=== PATIENT | male | born 2000 | race Caucasian/White ===

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

== ENCOUNTER 2019-09-10 18:11 | Emergency (ER) | payer BC, MEDICAID ==
--- OUTSIDE RECORDS SUMMARY | 2019-09-10 18:58 | XMS REPORT ---
:2000 Author Organization [facility] Care Team Providers Name Role Phone Dustin Elam Primary Care Physician Unavailable Allergies, Adverse Reactions, Alerts Allergy Code CodeSystem Reaction Severity Criticality Status Start Substance Date Moderate Medications Medication Medication Medication Start Stop Route Dose Status Fill Code CodeSystem Date Date Instructions Adderall XR 932317 RxNorm 2018- oral 15 mg 1 completed Take 1 capsule 02-27 capsule,e every morning xtended for 30 day(s) release 24hr every morning Seroquel 639605 RxNorm 2018-09 2020- oral 200 mg 1 active Take 1 tablet by 020 tablet at mouth at bedtime bedtime for 30 day(s) Abilify 4637444 RxNorm 2020- IM 300 mg active Inject 300 mg Maintena 04-01 300 intramuscularly suspensio single dose for n,extende 30 day(s) d rel recon single dose Adderall XR 597698 RxNorm 2018-09- oral 15 mg 1 active Take 1 capsule 0- capsule,e every morning xtended for 30 day(s) release 24hr every morning metformin 125716 RxNorm 2018-09 2020- oral 500 mg 1 active Take 1 tablet by 020 tablet mouth at bedtime extended for 30 day(s) release 24 hr at bedtime metformin 108252 RxNorm 2019- oral 500 mg 1 completed Take 1 tablet by 05-28 tablet mouth at bedtime extended for 30 day(s) release 24 hr at bedtime Invega 034634 RxNorm 2019- oral 1.5 mg 1 active Take 1 tablet by 08-07 tablet mouth at bedtime extended for 30 day(s) release 24hr at bedtime lisinopril 599867 RxNorm 2019- oral 5 mg 1 completed Take 1 tablet by - tablet mouth once a day once a for 30 day(s) day Seroquel 887116 RxNorm 2018-0 2019- oral 200 mg 1 completed Take 1 tablet by 5-15 09-12 tablet at mouth at bedtime bedtime for 30 day(s) Adderall XR 533528 RxNorm 2019- oral 15 mg 1 completed Take 1 capsule 07-17 capsule,e by mouth every xtended morning for 30 release day(s) 24hr every morning Adderall XR 761040 RxNorm 2018- 2019- oral 15 mg 1 completed Take 1 capsule 9-11 10-11 capsule,e every morning xtended for 30 day(s) release 24hr every morning Adderall XR 853595 RxNorm 2018- 2019- oral 15 mg 1 completed Take 1 capsule 4-03 05-03 capsule,e by mouth every xtended morning for 30 release day(s) 24hr every morning Adderall XR 515115 RxNorm 2018- 2019- oral 15 mg 1 completed Take 1 capsule 7-17 08-16 capsule,e every morning xtended for 30 day(s) release 24hr every morning lisinopril 719648 RxNorm 2018-09 2020- oral 5 mg 1 active Take 1 tablet by 0-23 02-20 tablet mouth once a day once a for 30 day(s) day Seroquel 226551 RxNorm 2019- oral 200 mg 1 completed Take 1 tablet by 05-15 tablet at mouth at bedtime bedtime for 30 day(s) Problems Problem Code CodeSystem Alternate Alternate Start End Status Narrative Name Code CodeSystem Date Date Other [id number] SNOMED-CT 2018-11 Active bipolar -22 disorder Relevant diagnostic tests/laboratory data Narrative No Information Procedures Procedure Code CodeSystem Target Date of Status Service Device Device Device Name Site Procedure Delivery Code Name UID Location Psychotherap [id number] SNOMED-CT () 2018-12-17 complete Mental y, 30 87 d Health- minutes with [place] patient when [address] with an [facility] and [facility], service [id number] (List [id number] separately in addition to the code for primary procedure) Psychotherap [id number] SNOMED-CT () 2019-05-26 complete Mental y, 45 04 d Health- minutes with [place] patient [address], [place], [place], [id number] Psychotherap [id number] SNOMED-CT () 2019-06-08 complete Mental y, 45 04 d Health- minutes with [place] patient [address], [id number] [id number] Psychotherap [id number] SNOMED-CT () 2019-03-25 complete Mental y, 45 04 d Health- minutes with [place] patient [address], [id number] [id number] Psychotherap [id number] SNOMED-CT () 2018-12-22 complete Mental y, 45 04 d Health- minutes with [place] patient [address], [id number] [id number] Psychotherap [id number] SNOMED-CT () 2019-07-21 complete Mental y, 45 04 d Health- minutes with [place] patient [address], [id number] Comprehensiv [id number] SNOMED-CT () 2019-04-02 complete Mental e medication 0 d Health- services, [place] per [address], [id number] [id number] Office or [id number] SNOMED-CT () 2019-04-01 complete Mental other 7 d Health- outpatient [place] visit for [address], [facility] [id number] patient, [phone] which requires at least 2 of these 3 miranda components: An expanded problem focused history; An expanded problem focused examination; Medical decision making of low Office or [id number] SNOMED-CT () 2019-02-18 complete Mental other 7 d Health- outpatient [place] visit for [address], [facility] [id number] patient, [phone] which requires at least 2 of these 3 miranda components: An expanded problem focused history; An expanded problem focused examination; Medical decision making of low Office or [id number] SNOMED-CT () 2019-07-08 complete Mental other 6 d Health- outpatient [place] visit for [address], [facility] [id number] patient, [phone] which requires at least 2 of these 3 miranda components: A problem focused history; A problem focused examination; Straightforw haylee medical decision making. Counselin SNOMED-CT () 2019-06-22 complete Mental d [address], [id number] [id number] SNOMED-CT () 2019-02-12 complete Mental d [address], [id number] [id number] SNOMED-CT () 2019-03-11 complete Mental d [address], [id number] [id number] SNOMED-CT () 2019-03-12 [facility] Mental d [address], [id number] SNOMED-CT () 2019-04-22 [facility] Mental d [address], [id number] [phone] SNOMED-CT () 2019-05-05 [facility] Mental d [address], [id number] SNOMED-CT () 2019-05-12 [facility] Mental d [address], [id number] [id number] Encounters/Encounter Diagnoses Encounter Name Encounter Diagnosis Diagnosis Diagnosis Date of Service Code Code Name CodeSystem Diagnosis Delivery Location [facility] [id number] Other SNOMED-CT 2019-07-21 Behavioral Individual 30 [facility] [address] [place] [address], [id number] Vital Signs No Information Social History Element Description Description Start End Code CodeSystem AdditionalInfo Date Date SexAssignedAtBirth Male 1999-0 M AdministrativeGender 7-14 Hospital Discharge Instructions Reason For Referral Medical Equipment FDA Assessments
--- NOTE | 2019-09-10 19:17 | ED ---
HPI Febrile Illness - HPI Summary HPI Summary: This patient is a 19 year old male presenting to [facility] with a chief complaint of illness. He reports right-sided abdominal pain, cough, and headache. He describes his abdominal pain as an intermittent twisting pain. He states he did not get the flu-shot this year and his friends sister was sick yesterday. Fever in the ED is 101.1 F. Patient has a Hx of DM. He rates his abdominal pain 8/10 in severity. Medications reviewed, allergies noted. - History of Current Complaint Chief Complaint: EDFever Time Seen by Provider: 09/10/19 19:10 Hx Obtained From: Patient Onset/Duration: Started Hours Ago Pain Intensity: 8 Pain Scale Used: 0-10 Numeric - Allergy/Home Medications Allergies/Adverse Reactions: Allergies Allergy/AdvReac Type Severity Reaction Status Date / Time No Known Allergies Allergy Verified 07/20/18 02:39 PMH/Surg Hx/FS Hx/Imm Hx Endocrine/Hematology History: Reports: Hx Diabetes - Type 2 Respiratory History: Denies: Hx Asthma Psychiatric History: Reports: Hx Attention Deficit Hyperactivity Disorder Infectious Disease History: No Infectious Disease History: Denies: Traveled Outside the [place] in Last 30 Days - Family History Known Family History: Negative: Cardiac Disease, Diabetes - Social History Alcohol Use: Occasionally Hx Substance Use: No Substance Use Type: Reports: None Hx Tobacco Use: No Smoking Status (MU): Never Smoked Tobacco Review of Systems Positive: Fever Positive: Cough Positive: Abdominal Pain Positive: Headache All Other Systems Reviewed And Are Negative: Yes Physical Exam - Summary Physical Exam Summary: Constitutional: Well-developed, Well-nourished, Alert. (-) Distressed Skin: Warm, Dry HENT: Normocephalic; Atraumatic. Copious nasal discharge. Eyes: Conjunctiva normal Neck: Musculoskeletal ROM normal neck. (-) JVD, (-) Stridor, (-) Tracheal deviation Cardio: Rhythm regular, rate tachyacardic, Heart sounds normal; Intact distal pulses; Radial pulses are 2+ and symmetric. (-) Murmur Pulmonary/Chest wall: Effort normal. (-) Respiratory distress, (-) Wheezes, (-) Rales Abd: Soft, (-) tenderness, (-) Distension, (-) Guarding, (-) Rebound Musculoskeletal: (-) Edema Lymph: (-) Cervical adenopathy Neuro: Alert, Oriented x3 Psych: Mood and affect Normal Triage Information Reviewed: Yes Vital Signs On Initial Exam: Initial Vitals Temp Pulse Resp BP Pulse Ox 101.1 F 117 18 148/99 98 09/10/19 18:22 09/10/19 18:22 09/10/19 18:22 09/10/19 18:22 09/10/19 18:22 Vital Signs Reviewed: Yes Procedures - Sedation Patient Received Moderate/Deep Sedation with Procedure: No Diagnostics - Vital Signs Vital Signs Temp Pulse Resp BP Pulse Ox 09/10/19 18:22 101.1 F 117 18 148/99 98 - Laboratory Result Diagrams: 09/10/19 20:51 09/10/19 20:51 Lab Statement: Any lab studies that have been ordered have been reviewed, and results considered in the medical decision making process. - EKG 2351 Cardiac Rate: Tachycardia - 121 BPM EKG Rhythm: Sinus Tachycardia Summary of EKG Findings: T-wave inversion in III. No prior EKG. ED Physician has reviewed and interpreted this report. Re-Evaluation - Re-Evaluation First Eval Re-Evaluation Time: 20:43 Comment: Still has a fever after Motrin and Tyelnol. Will do labs and give fluids IV. Second Eval Re-Evaluation Time: 21:15 Comment: Abdominal pain has resided, however he has had multiple episodes of diarrhea here. Third Eval Re-Evaluation Time: 23:36 Comment: Still tachycardic. Was advised he should be admitted and he stated he would leave AMA. He states he will stay for an EKG. He understands the risks of leaving AMA including . Course/Dx - Course Course Of Treatment: Patient is here with "twisting" of his stomach accompanied with fever and diarrhea. Patient had no abdominal tenderness on exam. Patient did not have any pain while in the ED. Patient was noted be tachycardic and febrile upon arrival. Patient is initially given by mouth Motrin and Tylenol with by mouth fluids. Patient's temperature and heart rate do not improve. Labs performed which showed no leukocytosis and a normal lactate. Patient was negative. Patient was given a total of 3 L of IV fluids with no improvement in his heart rate. Patient had multiple episodes of diarrhea while in the ED. Patient was told he would benefit from admission to the hospital but left AGAINST MEDICAL ADVICE. Patient was aware that leaving AGAINST MEDICAL ADVICE could lead to his and worsening morbidity/mortality. Patient accepted this risk and signed paperwork for AMA. - Diagnoses Provider Diagnoses: Fever, Tachycardia, Diarrhea, Dehydration Discharge ED - Sign-Out/Discharge Documenting (check all that apply): Patient Departure - Discharge - Discharge Plan Condition: Stable Disposition: AGAINST MEDICAL ADVICE Patient Education Materials: Dehydration (ED), Fever in Adults (ED), Tachycardia (ED) Referrals: Care [facility] [Outside] Additional Instructions: Please come back if you have second thoughts of being admitted. Return with nausea, vomiting, difficulty breathing, chest pain. - Billing Disposition and Condition Condition: STABLE Disposition: Against Medical Advice - Attestation Statements Document Initiated by Emely: Yes Documenting Scribe: Lasha Boyle Provider For Whom Emely is Documenting (Include Credential): Peter Gtz MD Scribe Attestation: Lasha Crane, scribed for Peter Gtz MD on 09/11/19 at 0051. Scribe Documentation Reviewed: Yes Provider Attestation: The documentation as recorded by the Lasha mercedes accurately reflects the service I personally performed and the decisions made by , Peter Gtz MD Status of Scribe Document: Viewed
[2019-09-10] MEDS ORDERED: Acetaminophen TAB* 325 MG PO ONE (19:18)
[2019-09-10 20:07] LABS: Influenza A Molecular NEGATIVE (Negative); Influenza B Molecular NEGATIVE (Negative)
[2019-09-10] MEDS ORDERED: Ibuprofen TAB* 600 MG PO ONE (20:09)
[2019-09-10] MEDS ORDERED: NS 0.9% 1000 ML** 2,000 ML IV ONE (20:43)
[2019-09-10 21:06] LABS: ABS Eosinophils 0.1 10^3/ul (0-0.6); ABS Lymphocytes 0.5 10^3/ul (1.0-4.8); ABS Monocytes 0.7 10^3/ul (0-0.8); ABS Neutrophils 8.3 10^3/ul (1.5-7.7); ABS Nucleated RBC 0.1 10^3/ul; Eosinophil % 0.8 %; Hematocrit 49 % (42-52); Hemoglobin 16.7 g/dL (14.0-18.0); Lymphocyte % 4.9 %; Mean Corpuscular HGB Conc 34 g/dL (31-36); Mean Corpuscular Hemoglobin 29 pg (27-31); Mean Corpuscular Volume 86 fL (80-94); Mean Platelet Volume 9.4 fL (7.4-10.4); Nucleated Red Blood Cells % 0.6; Platelet Count 228 10^3/uL (150-450); Red Blood Count 5.68 10^6 /uL (4.18-5.48); Red Cell Distribution Width 14 % (10-15); White Blood Count 9.5 10^3/uL (3.5-10.8)
[2019-09-10 21:21] LABS: Albumin 4.3 g/dL (3.2-5.2); BUN/Creatinine Ratio 20.2 (8-20); Calcium 9.5 mg/dL (8.6-10.3); EGFR Non-African American 116.5 (>60); Globulin 4.3 g/dL (2-4); Potassium 3.8 mmol/L (3.5-5.0); Total Bilirubin 0.4 mg/dL (0.2-1.0); Total Protein 8.6 g/dL (6.4-8.9)
[2019-09-10] MEDS ORDERED: NS 0.9% 1000 ML** 1,000 ML IV ONE (22:06)
[2019-09-11 00:20] VITALS: BP 141/99
== END 2019-09-11 00:10 | disposition left against medical advice (07) ==
LOC: ED 18:11
DX: R50.9 Fever, unspecified (principal); R00.0 Tachycardia, unspecified; R19.7 Diarrhea, unspecified; E86.0 Dehydration; E11.9 Type 2 diabetes mellitus without complications; F90.9 Attention-deficit hyperactivity disorder, unspecified type
CPT/HCPCS: 36415; 80053; 83605; 85025; 93005; 96360; 96361; 99284; A9270-GY

== ENCOUNTER 2019-09-16 00:42 | Emergency (ER) | payer BC, MEDICAID ==
--- NOTE | 2019-09-16 01:09 | ED ---
Substance Abuse/Use - HPI Summary HPI Summary: Pt is a 19 y/o M presenting to the ED brought in by EMS and [employer] on a 22.09. LEVEL 5 CAVEAT: Pts full hx and physical is limited d/t intoxication. EMS thinks he may have fallen, and reports he is highly emotional. Pt states he drank 1.5 bottles of vodka. Denies drug use. Hx NIDDM. - History Of Current Complaint Chief Complaint: EDSubstanceAbuse Stated Complaint: ETOH PER EMS Time Seen by Provider: 09/16/19 00:49 Hx Obtained From: Patient Onset/Duration of Drug/ETOH Abuse: Hours Overdose Characteristics: Oral Timing Of Abuse: Binge Use Severity Initially: Moderate Severity Currently: Severe Character: Lethargic Aggravating Factor(s): Nothing Alleviating Factor(s): Nothing Associated Signs And Symptoms: Vomiting - Allergies/Home Medications Allergies/Adverse Reactions: Allergies Allergy/AdvReac Type Severity Reaction Status Date / Time No Known Allergies Allergy Verified 07/20/18 02:39 PMH/Surg Hx/FS Hx/Imm Hx Previously Healthy: Yes Endocrine/Hematology History: Reports: Hx Diabetes - Type 2 Respiratory History: Denies: Hx Asthma Psychiatric History: Reports: Hx Attention Deficit Hyperactivity Disorder Infectious Disease History: Unable to Obtain/Confirm Infectious Disease History: Denies: Traveled Outside the [place] in Last 30 Days - Family History Known Family History: Negative: Cardiac Disease, Diabetes - Social History Alcohol Use: ETOH intoxication Hx Substance Use: No Substance Use Type: Reports: None Substance Use Comment - Amount & Last Used: unknown Hx Tobacco Use: No Smoking Status (MU): Unknown if Ever Smoked Review of Systems - ROS Summary Review of Systems Summary: Home Medications Medication Instructions Recorded Confirmed Type Adderall TAB* 15 mg pe PO DAILY 12/15/18 09/10/19 History Lisinopril TAB* [Prinivil TAB 5 5 mg PO DAILY 12/15/18 09/10/19 History MG*] Metformin HCl [Metformin HCl ER] 500 mg PO DAILY 12/15/18 09/10/19 History Quetiapine Fumarate 200 mg PO DAILY 12/15/18 09/10/19 History Positive: Vomiting All Other Systems Reviewed And Are Negative: No Physical Exam - Summary Physical Exam Summary: General: Obese male. Appears to have vomited on himself. Lethargic, arousable. HEENT: Normocephalic, Atraumatic. Eyes: Conjuctiva normal, PERRL. Oropharynx: Clear, mucous membranes moist, (-) exudates. Neck: Soft, FROM, (-) lymphadenopathy, (-) thyromegaly, (-) JVD. Cardiovascular: Normal sinus rhythm, (-) murmur. Lungs: Clear to auscultation bilaterally (-) wheezes, (-) rales, (-) rhonchi. Abdomen: Soft, non-tender, non-distended, (-) organomegaly, normal bowel sounds. Back: (-) CVA tenderness Extremities: No edema. Skin: Warm, dry, (-) rash. Neuro: Lethargic. Arousable. Triage Information Reviewed: Yes Vital Signs On Initial Exam: Initial Vitals Temp Pulse Resp BP Pulse Ox 97.7 F 98 16 165/69 94 09/16/19 00:45 09/16/19 00:45 09/16/19 00:45 09/16/19 00:45 09/16/19 00:45 Vital Signs Reviewed: Yes Completion Of Physical Exam Limited Due To: Level 5 Procedures - Sedation Patient Received Moderate/Deep Sedation with Procedure: No Diagnostics - Vital Signs Vital Signs Temp Pulse Resp BP Pulse Ox 09/16/19 00:47 100 135/69 94 09/16/19 00:46 99 93 09/16/19 00:45 97.7 F 98 16 165/69 94 - Laboratory Result Diagrams: 09/16/19 01:31 09/16/19 01:31 Lab Statement: Any lab studies that have been ordered have been reviewed, and results considered in the medical decision making process. Course/Dx - Course Course Of Treatment: 19-year-old male presents by ambulance for acute alcohol intoxication. Patient is unable to give accurate history. He is in no obvious distress. He does state he is diabetic. Does not take insulin. Pt given fluids in the ED. patient resting comfortably. Sign changes shift awaiting sobriety and reevaluation. - Diagnoses Provider Diagnoses: Alcohol intoxication Discharge ED - Sign-Out/Discharge Documenting (check all that apply): Sign-Out Patient - sobriety Signing out patient TO: Ben Aburto - Discharge Plan Referrals: [facility] [Outside] - Attestation Statements Document Initiated by Scribe: Yes Documenting Scribe: Genny Hernandez Provider For Whom Scribe is Documenting (Include Credential): Ricarda Gooden MD. Scribe Attestation: IGenny, scribed for Ricarda Gooden MD. on 09/16/19 at 0605. Scribe Documentation Reviewed: Yes Provider Attestation: The documentation as recorded by the scribe, Genny Hernandez accurately reflects the service I personally performed and the decisions made by me, Ricarda Gooden MD. Status of Scribe Document: Viewed
[2019-09-16] MEDS ORDERED: NS 0.9% 1000 ML** 1,000 ML IV ONE (01:13)
[2019-09-16 01:40] LABS: ABS Lymphocytes 1.8 10^3/ul (1.0-4.8); ABS Monocytes 0.5 10^3/ul (0-0.8); ABS Neutrophils 4.3 10^3/ul (1.5-7.7); Eosinophil % 0.7 %; Hematocrit 39 % (42-52); Hemoglobin 13.2 g/dL (14.0-18.0); Lymphocyte % 26.3 %; Mean Corpuscular HGB Conc 34 g/dL (31-36); Mean Corpuscular Hemoglobin 28 pg (27-31); Mean Corpuscular Volume 84 fL (80-94); Mean Platelet Volume 9.2 fL (7.4-10.4); Nucleated Red Blood Cells % 0.1; Platelet Count 238 10^3/uL (150-450); Red Blood Count 4.66 10^6 /uL (4.18-5.48); Red Cell Distribution Width 14 % (10-15); White Blood Count 6.7 10^3/uL (3.5-10.8)
[2019-09-16 01:55] LABS: ALT 75 U/L (7-52); AST 34 U/L (13-39); Albumin 4.2 g/dL (3.2-5.2); Albumin/Globulin Ratio 1.2 (1-3); Alkaline Phosphatase 87 U/L (34-104); Anion Gap 10 mmol/L (2-11); BUN/Creatinine Ratio 21.3 (8-20); Blood Urea Nitrogen 13 mg/dL (6-24); CO2 Carbon Dioxide 24 mmol/L (22-32); Calcium 8.8 mg/dL (8.6-10.3); Chloride 104 mmol/L (101-111); EGFR African American 203.9 (>60); EGFR Non-African American 168.5 (>60); Globulin 3.5 g/dL (2-4); Glucose 137 mg/dL (70-100); Potassium 3.6 mmol/L (3.5-5.0); Sodium 138 mmol/L (135-145); Total Protein 7.7 g/dL (6.4-8.9)
[2019-09-16 02:15] LABS: Acetaminophen < 15 mcg/mL; Alcohol 237 mg/dL (<10); Salicylate < 2.50 mg/dL (<30)
[2019-09-16 04:25] LABS: Urine Appearance Clear; Urine Bilirubin Negative (Negative); Urine Blood Negative (Negative); Urine Color Yellow; Urine Glucose Negative (Negative); Urine Ketones Negative (Negative); Urine Nitrite Negative (Negative); Urine Protein 1+(30 mg/dL) (Negative); Urine Specific Gravity 1.009 (1.010-1.030); Urine Urobilinogen Negative (Negative)
[2019-09-16 04:41] LABS: Urine Bacteria Absent (Absent); Urine Red Blood Cell Trace(0-2/hpf) (Absent); Urine White Blood Cell Trace(0-5/hpf) (Absent)
[2019-09-16 04:44] LABS: Urine Benzodiazepine Screen None Detected (None Detect); Urine Opiates Screen None Detected (None Detect)
--- NOTE | 2019-09-16 07:11 | ED ---
Progress - Progress Note Progress Note: This pt is a sign out to Dr. Aburto from Dr. Gooden at shift change 09/16/2019 0700 pending sobriety. Course/Dx - Course Course Of Treatment: This pt is a sign out to Dr. Aburto from Dr. Gooden at shift change 09/16/2019 0700 pending sobriety. He was discharged home with a Dx of alcohol intoxication - Diagnoses Provider Diagnoses: Alcohol intoxication Discharge ED - Sign-Out/Discharge Documenting (check all that apply): Patient Departure - discharge - Discharge Plan Condition: Stable Disposition: HOME Patient Education Materials: Alcohol Intoxication (ED), Abuse of Alcohol (ED) Referrals: Care [facility] [Outside] - 2 Days Additional Instructions: PLEASE FOLLOW UP WITH THE [facility] IN 1-3 DAYS AND RETURN TO THE EMERGENCY DEPARTMENT FOR ANY NEW OR WORSENING SYMPTOMS. - Attestation Statements Document Initiated by Scribe: Yes Documenting Scribe: Gio Mejia Provider For Whom Scribe is Documenting (Include Credential): Ben Aburto DO Scribe Attestation: IGio, scribed for Ben Aburto DO on 09/16/19 at 0758. Status of Scribe Document: Ready
[2019-09-16 07:58] VITALS: BP 127/55
== END 2019-09-16 08:12 | disposition home or self-care (01) ==
LOC: ED 00:42
DX: F10.929 Alcohol use, unspecified with intoxication, unspecified (principal); E11.9 Type 2 diabetes mellitus without complications; F90.9 Attention-deficit hyperactivity disorder, unspecified type; Z79.84 Long term (current) use of oral hypoglycemic drugs; Z79.899 Other long term (current) drug therapy
CPT/HCPCS: 36415; 80053; 80307; 80320; 80329; 81003; 81015; 83605; 85025; 87086; 96360; 99283; G0480

== ENCOUNTER 2021-06-04 02:11 | Inpatient (IN) ==
[2021-06-04] MEDS ORDERED: Lactated Ringers 1000 ml BAG 1,000 ML IV ONE ×3 (02:37→11:55)
[2021-06-04 02:43] LABS: ABS Lymphocytes 0.7 10^3/ul (1.0-4.8); ABS Monocytes 0.6 10^3/ul (0-0.8); ABS Neutrophils 10.7 10^3/ul (1.5-7.7); Eosinophil % 0.1 %; Hematocrit 43 % (42-52); Hemoglobin 14.3 g/dL (14.0-18.0); Lymphocyte % 5.9 %; Mean Corpuscular HGB Conc 33 g/dL (31-36); Mean Corpuscular Hemoglobin 30 pg (27-31); Mean Corpuscular Volume 90 fL (80-94); Mean Platelet Volume 10.7 fL (7.4-10.4); Nucleated Red Blood Cells % 0.1; Platelet Count 209 10^3/uL (150-450); Red Blood Count 4.76 10^6 /uL (4.18-5.48); Red Cell Distribution Width 14 % (10-15)
[2021-06-04 02:48] LABS: Venous Bicarbonate HCO3 17.8 mmol/L (24-28)
[2021-06-04 03:03] LABS: Alcohol, S < 13 mg/dL (<13); Salicylate < 2.50 mg/dL (<30)
[2021-06-04 03:04] LABS: ALT 64 U/L (7-52); AST 39 U/L (13-39); Albumin 4.5 g/dL (3.2-5.2); Albumin/Globulin Ratio 1.1 (1-3); Alkaline Phosphatase 74 U/L (35-149); Anion Gap 21 mmol/L (2-11); Blood Urea Nitrogen 10 mg/dL (6-24); CO2 Carbon Dioxide 17 mmol/L (22-32); Calcium 9.2 mg/dL (8.6-10.3); Chloride 98 mmol/L (101-111); EGFR African American 136.4 (>60); EGFR Non-African American 112.7 (>60); Magnesium 1.6 mg/dL (1.9-2.7); Potassium 3.5 mmol/L (3.5-5.0); Sodium 136 mmol/L (135-145); Total Protein 8.5 g/dL (6.4-8.9)
[2021-06-04 03:17] LABS: Glucose 517 mg/dL (70-100)
[2021-06-04 03:22] LABS: Acetaminophen < 15 mcg/mL
[2021-06-04] MEDS ORDERED: Magnesium Sulfate 2 gm BAG 2 GM/50 ML BAG IVPB ONE ×2 (03:23→07:39)
[2021-06-04] MEDS ORDERED: Insulin Infusion 100unit/100mL 100 UNIT/100 ML BAG IV ONE (03:24)
[2021-06-04 03:56] LABS: Urine Benzodiazepine Screen None Detected (None Detect); Urine Cannabinoids Screen None Detected (None Detect); Urine Opiates Screen None Detected (None Detect)
[2021-06-04] MEDS ORDERED: Dextrose 50% Syringe 50 ml 25 GM/50 ML SYRINGE IV PUSH ONE (04:05)
[2021-06-04] MEDS ORDERED: NS 0.9% w/ 20 Meq KCL 1000 ml 1,000 ML IV SCH (05:00)
[2021-06-04 05:32] LABS: Urine Appearance Clear; Urine Bilirubin Negative (Negative); Urine Blood Negative (Negative); Urine Color Yellow; Urine Glucose 3+(>=500 mg/dL) (Negative); Urine Ketones 1+ (Negative); Urine Nitrite Negative (Negative); Urine Protein 1+(30 mg/dL) (Negative); Urine Specific Gravity 1.023 (1.002-1.030); Urine Urobilinogen Negative (Negative)
[2021-06-04 05:48] LABS: Rapid COVID-19 Molecular Undetected (Undetected)
[2021-06-04 05:49] LABS: Urine Bacteria Absent (Absent); Urine Red Blood Cell Trace(0-2/hpf) (Absent); Urine White Blood Cell Trace(0-5/hpf) (Absent)
[2021-06-04] MEDS ORDERED: Piperacillin/Tazobac ADVAN 3.375 GM in NS 0.9% 100 ml BAG 100 ML IV ONE (07:42)
[2021-06-04 07:46] LABS: ABS Lymphocytes 0.8 10^3/ul (1.0-4.8); ABS Monocytes 0.6 10^3/ul (0-0.8); ABS Neutrophils 8.3 10^3/ul (1.5-7.7); Hematocrit 39 % (42-52); Hemoglobin 13.5 g/dL (14.0-18.0); Lymphocyte % 8.2 %; Mean Corpuscular HGB Conc 35 g/dL (31-36); Mean Corpuscular Hemoglobin 30 pg (27-31); Mean Corpuscular Volume 87 fL (80-94); Mean Platelet Volume 10.8 fL (7.4-10.4); Platelet Count 222 10^3/uL (150-450); Red Blood Count 4.47 10^6 /uL (4.18-5.48); Red Cell Distribution Width 13 % (10-15); White Blood Count 9.7 10^3/uL (3.5-10.8)
[2021-06-04] MEDS ORDERED: Zosyn per Pharmacy NOTE FOLLOW UP SCH (08:00)
[2021-06-04 08:05] LABS: C Reactive Protein 13.84 mg/L (<8.01); Calcium 9.2 mg/dL (8.6-10.3); EGFR African American 165.2 (>60); EGFR Non-African American 136.5 (>60); Potassium 3.4 mmol/L (3.5-5.0)
[2021-06-04] MEDS ORDERED: Insulin Infusion 100unit/100mL 100 UNIT/100 ML BAG IV SCH (09:00)
[2021-06-04] MEDS ORDERED: Insulin GLARGINE 100 un/ml 10 ml VIAL SUBCUT ONE (09:21)
[2021-06-04] MEDS ORDERED: Insulin GLARGINE 100 un/ml 10 ml VIAL ONE (09:24)
[2021-06-04] MEDS: KCL 20 MEQ/100 ML IVPREMIX 20 MEQ/100 ML BAG IV SCH ×2 (09:26→11:43)
[2021-06-04] MEDS ORDERED: D5W 1/2 NS 1000 ml BAG 1,000 ML IV SCH (10:00)
[2021-06-04] MEDS ORDERED: Dextrose 50% Syringe 50 ml 25 GM/50 ML SYRINGE IV PUSH PRN (13:20)
[2021-06-04] MEDS ORDERED: Acetaminophen IV 1 GM/100ML 100 ML IV PRN (13:58)
[2021-06-04] MEDS ORDERED: Lorazepam PYXIS KEY PRN (14:25)
[2021-06-04] MEDS ORDERED: LORazepam 2 mg VIAL 1 ml IV PUSH PRN (14:25)
[2021-06-04] MEDS ORDERED: Lorazepam PYXIS KEY ONE (14:36)
[2021-06-04] MEDS ORDERED: LORazepam 2 mg VIAL 1 ml ONE (14:36)
[2021-06-04] MEDS: ZOSYN 3.375 GM Q8H per EXTENDED INFUSION IV SCH ×2 (14:37→22:20)
[2021-06-04 14:57] LABS: Venous Bicarbonate HCO3 24.1 mmol/L (24-28)
[2021-06-04 15:14] LABS: Albumin 3.5 g/dL (3.2-5.2); Albumin/Globulin Ratio 1.1 (1-3); Calcium 8.8 mg/dL (8.6-10.3); EGFR African American 170.6 (>60); Globulin 3.2 g/dL (2-4); Potassium 3.6 mmol/L (3.5-5.0); Total Bilirubin 0.7 mg/dL (0.2-1.0); Total Protein 6.7 g/dL (6.4-8.9)
[2021-06-04] MEDS: Lactated Ringers 1000 ml BAG 1,000 ML IV SCH (22:32)
[2021-06-05] MEDS: ZOSYN 3.375 GM Q8H per EXTENDED INFUSION IV SCH ×3 (05:18→22:18)
[2021-06-05 05:45] LABS: ABS Lymphocytes 2.2 10^3/ul (1.0-4.8); Eosinophil % 0.3 %; Hematocrit 39 % (42-52); Hemoglobin 13.1 g/dL (14.0-18.0); Lymphocyte % 19.8 %; Mean Corpuscular HGB Conc 34 g/dL (31-36); Mean Corpuscular Hemoglobin 30 pg (27-31); Mean Corpuscular Volume 88 fL (80-94); Mean Platelet Volume 10.6 fL (7.4-10.4); Platelet Count 217 10^3/uL (150-450); Red Blood Count 4.37 10^6 /uL (4.18-5.48); Red Cell Distribution Width 14 % (10-15); White Blood Count 11.2 10^3/uL (3.5-10.8)
[2021-06-05] MEDS: Lactated Ringers 1000 ml BAG 1,000 ML IV SCH (08:32)
[2021-06-06] MEDS: ZOSYN 3.375 GM Q8H per EXTENDED INFUSION IV SCH ×3 (06:12→21:06)
[2021-06-06 06:26] LABS: ABS Eosinophils 0.1 10^3/ul (0-0.6); ABS Lymphocytes 2.7 10^3/ul (1.0-4.8); ABS Monocytes 0.7 10^3/ul (0-0.8); Eosinophil % 1.6 %; Hematocrit 38 % (42-52); Lymphocyte % 31.5 %; Mean Corpuscular HGB Conc 34 g/dL (31-36); Mean Corpuscular Hemoglobin 30 pg (27-31); Mean Corpuscular Volume 87 fL (80-94); Mean Platelet Volume 10.6 fL (7.4-10.4); Platelet Count 199 10^3/uL (150-450); Red Blood Count 4.34 10^6 /uL (4.18-5.48); Red Cell Distribution Width 14 % (10-15); White Blood Count 8.5 10^3/uL (3.5-10.8)
[2021-06-06 06:40] LABS: Calcium 8.8 mg/dL (8.6-10.3); EGFR African American 203.9 (>60); EGFR Non-African American 168.5 (>60); Potassium 3.5 mmol/L (3.5-5.0)
[2021-06-07] MEDS: ZOSYN 3.375 GM Q8H per EXTENDED INFUSION IV SCH ×3 (05:45→21:03)
[2021-06-07] MEDS ORDERED: Enoxaparin 40 MG/0.4 ML SYR SUBCUT SCH (21:00)
[2021-06-08] MEDS: ZOSYN 3.375 GM Q8H per EXTENDED INFUSION IV SCH ×2 (05:14→13:35)
[2021-06-08 06:23] LABS: ABS Eosinophils 0.3 10^3/ul (0-0.6); ABS Lymphocytes 2.5 10^3/ul (1.0-4.8); ABS Monocytes 0.5 10^3/ul (0-0.8); ABS Neutrophils 4.1 10^3/ul (1.5-7.7); Eosinophil % 3.4 %; Hematocrit 38 % (42-52); Hemoglobin 13.1 g/dL (14.0-18.0); Lymphocyte % 33.4 %; Mean Corpuscular HGB Conc 35 g/dL (31-36); Mean Corpuscular Hemoglobin 30 pg (27-31); Mean Corpuscular Volume 87 fL (80-94); Mean Platelet Volume 10.1 fL (7.4-10.4); Nucleated Red Blood Cells % 0.1; Platelet Count 266 10^3/uL (150-450); Red Blood Count 4.34 10^6 /uL (4.18-5.48); Red Cell Distribution Width 13 % (10-15); White Blood Count 7.5 10^3/uL (3.5-10.8)
[2021-06-08 06:42] LABS: C Reactive Protein 40.66 mg/L (<8.01); Calcium 8.9 mg/dL (8.6-10.3); EGFR African American 170.6 (>60); Magnesium 1.5 mg/dL (1.9-2.7); Phosphorus 4.3 mg/dL (2.5-5.0); Potassium 3.6 mmol/L (3.5-5.0)
[2021-06-08] MEDS ORDERED: Magnesium Sulfate 2 gm BAG 2 GM/50 ML BAG IVPB ONE (08:30)
[2021-06-08 10:29] LABS: Erythrocyte Sed Rate 50 mm/Hr (0-14)
[2021-06-08 13:53] VITALS: BP 149/93
== END 2021-06-08 18:10 | disposition home or self-care (01) | DRG 812 ==
LOC: ED 02:11 → ICU 04:05 → SUATTDRO 04:05 → ICU 06:15 → MED 06-05 14:58
PROVIDERS: ADMIT Internal Medicine; ATTEND Internal Medicine